=== PATIENT | male | born 1965 | race Caucasian/White ===

== ENCOUNTER → 2019-06-29 06:54 | Outpatient (CLI) | payer BC, SELFPAY ==
[2019-06-16 14:19] VITALS: BMI 28.5
--- NOTE | 2019-06-30 11:00 | STRESSREP ---
Stress Test Report Date: 06/29/2019 Procedure: Pharmacologic stress nuclear imaging study Indications: [DOT required stress test] Consent: Per the patient Procedure: The patient underwent pharmacologic (Regadenoson) evaluation with a peak heart rate of 97 beats per minute (59 %predicted maximal heart rate) and a peak blood pressure of 150/88 mmHg. The baseline ECG demonstrated normal sinus rhythm. EKG during lexiscan infusion revealed no significant ischemic changes. EKG post infusion revealed no significant ischemic changes [There were no cardiac dysrhythmias pretest, during pharmacologic infusion, or recovery]. [There was no complaint of chest discomfort during pharmacologic infusion or recovery]. The examination was discontinued secondary to completion of protocol. Impression: 1. Lexiscan stress test test is negative for Lexiscan infusion induced EKG changes of ischemia. 2. Lexiscan stress test test is negative for Lexiscan infusion induced chest pain. 3. Results of the nuclear portion of the test is as below Myocardial perfusion imaging study: Technique: The patient was injected with 12 millicuries of technetium 99m Cardiolite and subsequently rest SPECT Cardiolite nuclear imaging was obtained in the horizontal long, vertical long, and short axis views. The patient underwent pharmacologic (Regadenoson) evaluation. Please see above for details. The patient was injected with 35 millicuries of technetium 99m Cardiolite and subsequently stress SPECT Cardiolite nuclear imaging was obtained in the horizontal long, vertical long, and short axis views. A gated Cardiolite study at peak stress was obtained. Interpretation: Rest and stress SPECT Cardiolite nuclear imaging status post realignment, normalization, and attenuation correction demonstrate mildly decreased radioisotope uptake in the inferior wall on both the stress and rest images prior to attenuation correction. After attenuation correction there is normal myocardial radioisotope uptake in the inferior wall on both the rest and stress images. There is no significant reversibility suggestive of significant ischemia or infarction. These findings are suggestive of diaphragmatic attenuation artifact. Gated images reveal[]. The reported LVEF is 57 %. Impression: 1. There is no evidence of significant ischemia or infarction. 2. Estimated ejection fraction is 57%. This note was generated with [employer] software. It may contain incorrect words, spelling, and punctuation that were not noted in checking the note before signing.
== END ==
LOC: CVS 06:54
PROVIDERS: PCP Nurse Practitioner Adult Health; Referring Provider Specialist; Visit Provider Specialist
DX: I10 Essential (primary) hypertension (principal); I25.10 Atherosclerotic heart disease of native coronary artery without angina pectoris; Z95.5 Presence of coronary angioplasty implant and graft
CPT/HCPCS: 78452; 93017; A9500; A4216; J2785

== ENCOUNTER → 2022-03-02 | Outpatient (CLI) | payer BC, SELFPAY ==
--- NOTE | 2022-03-02 18:42 | CT_ITS ---
ACR Level 3 findings have been noted. An addendum which confirms receipt of the report will follow. EXAM: CT CHEST WITH INTRAVENOUS CONTRAST CLINICAL INDICATION: Thoracic ascending aortic aneurysm TECHNIQUE: Helically acquired images were obtained of the chest with intravenous contrast. CTDIvol = ( 13.91 ) mGy, DLP = ( 687.97 ) mGycm This CT exam was performed using one or more of the following dose reduction techniques: automated exposure control, adjustment of the mA and/or kV according to patient size, and/or use of iterative reconstruction technique. This report was created using [employer] technology. CONTRAST: IV 100mL [id number] COMPARISON: None. FINDINGS: LUNGS AND PLEURAL SPACES: No consolidation. No pleural effusion or pneumothorax. Ill-defined semisolid nodule is probably infectious, measuring up to 4.3 cm at the medial aspect of the left lower lobe. HEART: See below. MEDIASTINUM: No mediastinal or hilar adenopathy. Esophagus is unremarkable. No hiatal hernia. THYROID: Thyroid is unremarkable. BONES/JOINTS: No suspicious lytic or sclerotic lesions of bone. VASCULATURE: Ascending thoracic aorta measures 4.2 cm. No aortic dissection. No PE. Coronary calcific arteriosclerosis. No cardiomegaly or pericardial effusion. No obvious central pulmonary embolism although this study was not performed with the pulmonary embolism protocol. LIVER: Small cyst at the anterior segment of the right hepatic lobe adjacent to the fissure. STOMACH AND BOWEL: Colonic diverticulosis but no acute diverticulitis. No other inflammatory changes of bowel. CT/Chest WITH Contrast IMPRESSION: 1. Ascending thoracic aorta measures 4.2 cm. 2. Ill-defined semisolid nodule is probably infectious, measuring up to 4.3 cm at the medial aspect of the left lower lobe. Suggest follow-up in 6 months to document stability. Electronically Signed: Maximo Galeas MD at 22:45 EDT ,
[2022-03-02 19:11] LABS: CREATININE FINGERSTICK 1.2 mg/dL (0.70-1.30); EGFR FINGERSTICK > 60.0000 mL/min (>60)
== END | disposition home or self-care (01) ==
LOC: CT 18:40
PROVIDERS: PCP Nurse Practitioner Adult Health; Referring Provider Nurse Practitioner Gerontology; Visit Provider Nurse Practitioner Gerontology
DX: I71.21 Aneurysm of the ascending aorta, without rupture (principal)
CPT/HCPCS: 71260; Q9967

== ENCOUNTER → 2022-03-09 | Outpatient (CLI) | payer BC, SELFPAY ==
[2022-03-09 18:01] LABS: Anion Gap 4 (5-15); BUN 11 mg/dL (7-18); BUN/Creat Ratio 11.8 RATIO (10-20); Chloride 101 mmol/L (98-107); Creatinine, Serum 0.93 mg/dL (0.70-1.30); EST Glomerular Filtration Rate 88 mL/min (>60); Est Glom Filt Rate - Afr Amer 107 mL/min (>60); Glucose 92 mg/dL (74-106); Potassium 3.6 mmol/L (3.5-5.1); Sodium Level 137 mmol/L (136-145)
== END | disposition home or self-care (01) ==
LOC: LAB 16:24
PROVIDERS: PCP Nurse Practitioner Adult Health; Referring Provider Nurse Practitioner Gerontology; Visit Provider Nurse Practitioner Gerontology
DX: I10 Essential (primary) hypertension (principal)
CPT/HCPCS: 36415; 80048

== ENCOUNTER → 2022-06-02 | Outpatient (CLI) | payer BC, SELFPAY ==
[2022-06-02 10:53] LABS: AST(SGOT) 17 U/L (15-37); Alanine Aminotransfer ALT/SGPT 37 U/L (16-61); Albumin, Serum 3.6 g/dL (3.2-5.0); Alkaline Phosphatase 62 U/L (45-117); Bilirubin, Direct 0.13 mg/dL (0.00-0.30); Cholesterol 195 mg/dL (200); Globulin 3.7 g/dL (2.2-4.2); High Density Lipoprotein 33 mg/dL; Protein, Total 7.3 g/dL (6.4-8.2); Triglycerides 222 mg/dL; Very Low Density Lipoprotein 44 mg/dL (5-40)
== END | disposition home or self-care (01) ==
LOC: LAB 09:40
PROVIDERS: PCP Nurse Practitioner Adult Health; Referring Provider Internal Medicine Cardiovascular Disease; Visit Provider Internal Medicine Cardiovascular Disease
DX: E78.5 Hyperlipidemia, unspecified (principal); I25.10 Atherosclerotic heart disease of native coronary artery without angina pectoris; R06.00 Dyspnea, unspecified; I10 Essential (primary) hypertension
CPT/HCPCS: 36415; 80061; 80076

== ENCOUNTER → 2022-06-08 | Outpatient (CLI) | payer BC, SELFPAY ==
--- NOTE | 2022-06-13 15:48 | STRESSREP ---
Stress Test Report Date: 06/08/2022 Procedure: Pharmacologic stress nuclear imaging study Indications: Coronary artery disease Consent: Per the patient Procedure: The patient underwent pharmacologic (Regadenoson 0.4mg ) evaluation with a peak heart rate of 97 beats per minute (60%predicted maximal heart rate) and a peak blood pressure of 142/98 mmHg. The baseline ECG demonstrated normal sinus rhythm. The peak pharmacologic ECG demonstrated no ischemic change. There were no cardiac dysrhythmias pretest, during pharmacologic infusion, or recovery. There was no complaint of chest discomfort during pharmacologic infusion or recovery. The patient was injected with 14.7 millicuries of technetium 99m Cardiolite and subsequently rest SPECT Cardiolite nuclear imaging was obtained in the horizontal long, vertical long, and short axis views. The patient underwent pharmacologic (Regadenoson) evaluation. The patient was injected with 44.8 millicuries of technetium 99m Cardiolite and subsequently stress SPECT Cardiolite nuclear imaging was obtained in the horizontal long, vertical long, and short axis views. A gated Cardiolite study at peak stress was obtained. The examination was stopped secondary to completion of protocol. Rest and stress SPECT Cardiolite nuclear imaging status post realignment, normalization, and attenuation correction demonstrate no fixed or reversible perfusion defect. There is end systolic thickening and brightening. The gated Cardiolite study demonstrates myocardial thickening and inward wall motion. The reported LVEF is 55%. Impression: 1. Pharmacologic (Regadenoson) evaluation 2. Peak pharmacologic ECG with no ischemic change. 3. There were no cardiac dysrhythmias pretest, during pharmacologic infusion, or recovery. 5. No fixed or reversible perfusion defect. 6. The gated Cardiolite study reports an LVEF of 55%. This note was generated with [employer] software. It may contain incorrect words, spelling, and punctuation that were not noted in checking the note before signing.
== END | disposition home or self-care (01) ==
LOC: CVS 06:11
PROVIDERS: PCP Nurse Practitioner Adult Health; Visit Provider Internal Medicine Cardiovascular Disease
DX: I25.10 Atherosclerotic heart disease of native coronary artery without angina pectoris (principal); I10 Essential (primary) hypertension; E78.5 Hyperlipidemia, unspecified
CPT/HCPCS: 78452; 93017; A9500; A4216; J2785